=== PATIENT | female | born 1995 | race Two or more races ===

== ENCOUNTER 2022-01-19 00:48 | Emergency (ER) | payer BC, OTHER ==
[~2022-01-19] VITALS: Ht 152.4 cm; Wt 63.0 kg
[2022-01-19 00:48] VITALS: BP 148/97
[2022-01-19 03:22] LABS: Urine Bacteria NONE SEEN /hpf (None Seen); Urine Blood Negative /uL (Negative); Urine Mucus FEW (None Seen); Urine Specific Gravity 1.029 (1.001-1.035); Urine WBC 3 /hpf (0 - 5)
== END 2022-01-19 03:33 | disposition home or self-care (01) ==
LOC: ER 00:48
DX: G43.909 Migraine, unspecified, not intractable, without status migrainosus (principal); E86.0 Dehydration
CPT/HCPCS: 81001; 81025